=== PATIENT | male | born 1995 | race Two or more races ===

== ENCOUNTER 2019-04-10 23:41 | Emergency (ER) | payer OTHER ==
[~2019-04-10] VITALS: Ht 157.5 cm; Wt 68.0 kg
[2019-04-11] MEDS ORDERED: FAMOTIDINE IV 40 MG in IV DEXTROSE 5% 50 ML IV ONE ×2
[2019-04-11] MEDS ORDERED: ONDANSETRON 4 MG/2 ML VIAL IV ONE
[2019-04-11] MEDS ORDERED: IV D5/ 0.9% NACL 1,000 ML IV ONE
[2019-04-11] MEDS ORDERED: OLANZAPINE 5 MG TABLET PO ONE
--- NOTE | 2019-04-11 00:01 | NUR ---
Pt. BIB RA for stated emesis of blood x 3 days, pt. is homeless and disheveled in appearance, A/Ox4, speaks in clear and complete sentences, RR even and unlabored, VSS, reports feeling nauses witnessed emesis x 2 - no blood in emesis, denies SOB/CP/VANCE/F/C/D,
--- NOTE | 2019-04-11 00:08 | NUR ---
Rad. tech. at bedside for CXR
[2019-04-11] MEDS ORDERED: ONDANSETRON 4 MG/2 ML VIAL ONE (00:13)
[2019-04-11 00:24] LABS: BASOPHILS % (AUTO) 0.5 % (0.0-2.0); HEMATOCRIT 52.3 % (36.7-47.1); HEMOGLOBIN 18.5 g/dL (12.5-16.3); LYMPHOCYTES # (AUTO) 2.3 K/uL (20.0-40.0); LYMPHOCYTES % (AUTO) 31.2 % (20.5-51.5); MEAN CORPUSCULAR HGB CONC 35 g/dL (32.5-36.3); MEAN CORPUSCULAR VOLUME 87.7 fL (73.0-96.2); MONOCYTES # (AUTO) 0.5 K/uL (2.0-10.0); MONOCYTES % (AUTO) 7.4 % (0.0-11.0); NEUTROPHILS # (AUTO) 4.5 K/uL (1.8-8.9); NEUTROPHILS % (AUTO) 60.9 % (38.5-71.5); PLATELET COUNT (AUTO) 229 K/uL (152-348); RED BLOOD CELL COUNT(AUTO) 5.97 MIL/uL (4.06-5.63); WHITE BLOOD COUNT (AUTO) 7.4 K/uL (3.6-10.2)
--- NOTE | 2019-04-11 00:32 | NUR ---
IV pepcid in D5 50ml bag stopped at 0032 Addendum: 04/30/19 at 2036 by BKSHELIA Pepcid in 50cc D5 bag stopped at 131
[2019-04-11 00:34] LABS: CREATININE 0.8 mg/dL (0.6-1.3); POTASSIUM 2.9 mmol/L (3.5-5.1)
[2019-04-11 00:40] LABS: BILIRUBIN,DIRECT 0.6 mg/dL (0.0-0.2); TOTAL PROTEIN, SERUM 7.8 g/dL (6.4-8.2)
[2019-04-11] MEDS ORDERED: FAMOTIDINE. 20 MG/2 ML VIAL IV ONE (00:45)
[2019-04-11] MEDS ORDERED: OLANZAPINE 5 MG TABLET ONE (00:45)
--- NOTE | 2019-04-11 00:46 | NUR ---
IV pepcid 20mg in 5ml NS stopped at 0046
--- NOTE | 2019-04-11 01:00 | NUR ---
Pt. given basin, soap and washcloths to rinse feet, given non-slip socks,
--- NOTE | 2019-04-11 01:25 | NUR ---
IV stop time D5NS 0125
--- NOTE | 2019-04-11 01:30 | NUR ---
Pt. up to use restroom, walks w/ steady gait, NAD
[2019-04-11] MEDS ORDERED: IV 0.9% SODIUM CHLORID+ 20 KCL 1,000 ML IV ONE (01:35)
[2019-04-11] MEDS ORDERED: POTASSIUM CHLORIDE 20 MEQ TAB.PRT.SR PO ONE (01:45)
[2019-04-11] MEDS ORDERED: MAGNESIUM SULFATE/D5W 100 ML ONE ×2 (02:17→02:43)
[2019-04-11] MEDS ORDERED: POTASSIUM CHLORIDE 20 MEQ TAB.PRT.SR ONE (02:20)
[2019-04-11] MEDS: MAGNESIUM SULFATE/D5W 100 ML IV SCH ×2 (02:36→03:30)
[2019-04-11] MEDS ORDERED: POTASSIUM CHLORIDE 100 ML ONE (02:43)
[2019-04-11] MEDS ORDERED: POTASSIUM CHLORIDE 50 ML IV ONE ×2 (02:45)
--- NOTE | 2019-04-11 02:58 | NUR ---
Pt. resting in bed, IV fluids infusing, no s/s infiltration/phlebitis,
[2019-04-11 03:04] LABS: *OCCULT BLOOD STOOL NEGATIVE (NEGATIVE)
--- NOTE | 2019-04-11 03:45 | NUR ---
IV stop time KCL 4578
--- NOTE | 2019-04-11 05:14 | NUR ---
Pt. resting in bed w/ eyes closed, IV fluids infusing, no s/s infiltration/phlebitis,
--- NOTE | 2019-04-11 05:50 | NUR ---
IV stop time KCL 0550
--- NOTE | 2019-04-11 05:50 | NUR ---
R hand IV pulled out by pt. accidentally,
--- NOTE | 2019-04-11 06:20 | NUR ---
Patient given written and verbal discharge instructions. Patient verbalizes understanding of instructions. Patient is ambulatory with steady gait. Refuses offer of [facility] placement. Patient given list of available shelters in surrounding area. Pt. d/c per MD order w/ prescription, d/c papers signed, all belongings w/ pt., ID band/IV removed, ambulated off unit w/ steady gait, NAD
== END 2019-04-11 06:23 | disposition home or self-care (01) ==
LOC: ER 23:43
DX: F10.129 Alcohol abuse with intoxication, unspecified (principal); F20.9 Schizophrenia, unspecified; F32.9 Major depressive disorder, single episode, unspecified; F17.200 Nicotine dependence, unspecified, uncomplicated; Z76.5 Malingerer [conscious simulation]; Y90.9 Presence of alcohol in blood, level not specified
CPT/HCPCS: 36415; 71045; 80048; 80076; 82270; 83690; 84484; 85025; 85730; 86850; 86900; 86901; 93005; 96365; 96366; 96367; 96368; 96375; 99284; J2405; J3475 ×2; J3480; J3490; J7060; 70030-TC; A4663; J7030

== ENCOUNTER 2020-08-15 21:16 | Emergency (ER) | payer OTHER ==
[~2020-08-15] VITALS: Ht 154.9 cm; Wt 54.1 kg
[2020-08-15] MEDS ORDERED: HYDROMORPHONE 1 MG/1 ML DISP.SYRIN IM ONE (21:45)
[2020-08-15] MEDS ORDERED: ONDANSETRON 4 MG/2 ML VIAL IM ONE (21:45)
[2020-08-15] MEDS ORDERED: ONDANSETRON 4 MG/2 ML VIAL ONE (21:46)
[2020-08-15] MEDS ORDERED: HYDROMORPHONE 2 MG/1 ML DISP.SYRIN ONE (21:46)
--- NOTE | 2020-08-15 21:54 | NUR ---
Patient discharged to home in stable condition. Written and verbal after care instructions given. Patient verbalizes understanding of instructions. Stressed follow up or return to ER for worsening s/s. Patient ambulated with stable gait.
[2020-08-15 21:55] VITALS: BP 121/62
== END 2020-08-15 21:56 | disposition home or self-care (01) ==
LOC: ER 21:20
DX: G89.29 Other chronic pain (principal); M25.532 Pain in left wrist; S60.86 Insect bite (nonvenomous) of wrist; W57.XXXS Bitten or stung by nonvenomous insect and other nonvenomous arthropods, sequela; Z59.0 Homelessness; F31.9 Bipolar disorder, unspecified; F20.9 Schizophrenia, unspecified
CPT/HCPCS: 96372 ×2; 99284; J1170; J2405; A4663

== ENCOUNTER 2020-09-28 14:34 | Emergency (ER) | payer MEDICAID, OTHER ==
[~2020-09-28] VITALS: Ht 160 cm; Wt 52.2 kg
--- NOTE | 2020-09-28 14:34 | NUR ---
PT BIB [facility] 85 FROM [facility] POSSIBLE OD, PT WAS GIVEN NARCAN IM BY PARAMEDICS. IN ER, PT AWAKE, RA SAT 97%, NORMAL BREATHING. PT DOES NOT ANSWER ANY QUESTION, ONLY MOANS AND LEYLA
[2020-09-28 14:59] LABS: BASOPHILS # (AUTO) 0.1 K/uL (0.0-8.0); BASOPHILS % (AUTO) 0.6 % (0.0-2.0); EOSINOPHILS % (AUTO) 0.1 % (0.0-7.0); HEMATOCRIT 38.4 % (36.7-47.1); HEMOGLOBIN 13.7 g/dL (12.5-16.3); LYMPHOCYTES # (AUTO) 2.1 K/uL (20.0-40.0); LYMPHOCYTES % (AUTO) 17.5 % (20.5-51.5); MEAN CORPUSCULAR HEMOGLOBIN 29.9 uug (23.8-33.4); MEAN CORPUSCULAR HGB CONC 36 g/dL (32.5-36.3); MEAN CORPUSCULAR VOLUME 84.1 fL (73.0-96.2); MONOCYTES # (AUTO) 0.6 K/uL (2.0-10.0); NEUTROPHILS # (AUTO) 9.1 K/uL (1.8-8.9); NEUTROPHILS % (AUTO) 76.8 % (38.5-71.5); PLATELET COUNT (AUTO) 443 K/uL (152-348); RED BLOOD CELL COUNT(AUTO) 4.57 MIL/uL (4.06-5.63); WHITE BLOOD COUNT (AUTO) 11.9 K/uL (3.6-10.2)
[2020-09-28 15:08] LABS: CARBON DIOXIDE 27 mmol/L (21-32); CHLORIDE 102 mmol/L (98-107); CREATININE 0.6 mg/dL (0.6-1.3); GLUCOSE 104 mg/dL (74-106); POTASSIUM 3.1 mmol/L (3.5-5.1); UREA NITROGEN, BLOOD 14 mg/dL (7-18)
--- NOTE | 2020-09-28 15:10 | NUR ---
[employer] OFFICERS AT BEDSIDE.
[2020-09-28 15:14] LABS: ALANINE AMINOTRANSFERASE 65 U/L (16-63); ALKALINE PHOSPHATASE 135 U/L (50-136); BILIRUBIN,TOTAL 0.6 mg/dL (0.2-1.0); TOTAL PROTEIN, SERUM 6.6 g/dL (6.4-8.2)
--- NOTE | 2020-09-28 15:15 | NUR ---
JG PLACED PT ON HOLD FOR 5150 HOLD, ARA
--- NOTE | 2020-09-28 15:23 | NUR ---
DELAY ON EKG, PT UNABLE TO HOLD STILL
[2020-09-28 15:24] LABS: ASPARTATE AMINOTRANSFERASE 43 U/L (15-37)
[2020-09-28 15:31] LABS: ACETAMINOPHEN < 2.0 ug/mL (10-30)
[2020-09-28 16:30] LABS: THYROID STIMULATING HORMONE 0.425 mIU/mL (0.358-3.740)
--- NOTE | 2020-09-28 16:33 | NUR ---
pt in bed, moves all extremeties and once in a while says something hard to understand.
--- NOTE | 2020-09-28 18:05 | NUR ---
PT IN BED MOVING FREQUENTLY. VSS.
--- NOTE | 2020-09-28 20:13 | NUR ---
Sitter at bedside , direct observation ongoing.
--- NOTE | 2020-09-28 22:00 | NUR ---
Patient remains in bed, no acute distress noted. VSS
--- NOTE | 2020-09-28 23:12 | NUR ---
Patient in bed, sitter at bedside. Direct observation ongoing. no acute distress noted. VSS
--- NOTE | 2020-09-29 00:12 | NUR ---
Patient remains in bed,no acute distress noted. VSS
--- NOTE | 2020-09-29 04:39 | NUR ---
Patient continues to endorses suicidality. No acute distress noted. Sitter at bedside. VSS
--- NOTE | 2020-09-29 07:06 | NUR ---
Report to Rudolph HERNANDEZ
--- NOTE | 2020-09-29 07:07 | NUR ---
recieved pt in bed, no sign of distress. sitter at bedside.
--- NOTE | 2020-09-29 07:30 | NUR ---
THERE IS NO SITTER AVAILABLE FOR THE PT, NURSING OFFICE IS AWARE.
--- NOTE | 2020-09-29 09:00 | NUR ---
LEFT A CONNIE Myles, COURTESY BUS DRIVER. LEFT A MESSAGE
--- NOTE | 2020-09-29 10:00 | NUR ---
LEFT A MESSAGE Mleo OWENS. SHE WILL FOLLOW UP WITH CASE.
--- NOTE | 2020-09-29 10:09 | NUR ---
JAMIR GOMEZ CALLED, WILL COME TO EVALUATE THE PT.
--- NOTE | 2020-09-29 11:00 | NUR ---
radha sheriff at bedside.
[2020-09-29 12:48] LABS: *AMPHETAMINE, URINE POSITIVE (NEGATIVE); *CANNABINOID, URINE POSITIVE (NEGATIVE); *COCCAINE, URINE NEGATIVE (NEGATIVE); *OPIATE, URINE NEGATIVE (NEGATIVE); *PHENCYCLIDINE SCREEN,URINE NEGATIVE (NEGATIVE)
--- NOTE | 2020-09-29 13:25 | NUR ---
uds faxed to requested numbers per Art.
--- NOTE | 2020-09-29 13:39 | NUR ---
RECEIVED REPORT FROM FARZANA RN, PT SLEEPING WITH EYES CLOSEED. AWAITING FOR [facility] TO FIND PLACEMENT.
--- NOTE | 2020-09-29 14:00 | NUR ---
ALLYSON PSYCH DIRECTOR PRESENT AND HELPING WITH TRANSFER INFORMATION .
--- NOTE | 2020-09-29 14:12 | NUR ---
LUNCH GIVEN TO PT.
--- NOTE | 2020-09-29 14:30 | NUR ---
Clinical Social Work Note Patient was placed on a voluntary status by Torres Brown LCSW. This social economist called Camila Ochoa, Director of [facility] and she said she will do her best to expedite and review this possible admission to their unit. All information refaxed to the call center at [phone] at 1415. Will await response. Also, called Isauro, scrap preparation supervisor at [facility] ([phone]) and he is having scrap preparation supervisor review chart. Advised Dr Galvez that we are awaiting acceptance and will transfer as soon as a bed becomes available. Sarthak assigned RN was also notified of plan.
--- NOTE | 2020-09-29 15:30 | NUR ---
CALLED [facility],AT [phone], SPOKE TO KAYE HERNANDEZ WHOM STATED SHE WAS NOT READY FOR REPORT. STATED SHE WOULD CALL ME BACK IN 15MIN AFTER REVIEWING THE CHART.
--- NOTE | 2020-09-29 16:00 | NUR ---
SPOKE TO CARMELO HERNANDEZ AT [facility], GAVE HER REPORT. BELONGINGS LIST DONE TRANSGFER CONSENT SIGNED, AWAITING FOR S TRANSPORT TO ARRIVE.
[2020-09-29] MEDS ORDERED: POTASSIUM CHLORIDE 20 MEQ TAB.PRT.SR PO ONE (16:15)
[2020-09-29] MEDS ORDERED: POTASSIUM CHLORIDE 20 MEQ TAB.PRT.SR ONE (16:17)
--- NOTE | 2020-09-29 17:45 | NUR ---
[facility] TRANSPORT GIVEN REPORT/COPY OF CHART. PT TOOK ALL BELONGINGS, SIGNED TRANSFER ACKNOWLEDGMENT. NO DISTRESS NOTED.
== END 2020-09-29 17:56 ==
LOC: ER 14:34
DX: T40.412A Poisoning by fentanyl or fentanyl analogs, intentional self-harm, initial encounter (principal); T43.622A Poisoning by amphetamines, intentional self-harm, initial encounter; T40.1X2A Poisoning by heroin, intentional self-harm, initial encounter; G92 Toxic encephalopathy; Y92.89 Other specified places as the place of occurrence of the external cause; F19.10 Other psychoactive substance abuse, uncomplicated; F90.9 Attention-deficit hyperactivity disorder, unspecified type; F31.9 Bipolar disorder, unspecified; F17.210 Nicotine dependence, cigarettes, uncomplicated; Z91.5 Personal history of self-harm; R53.83 Other fatigue; Z20.828 Contact with and (suspected) exposure to other viral communicable diseases; E87.6 Hypokalemia; R94.31 Abnormal electrocardiogram [ECG] [EKG]
CPT/HCPCS: 36415; 71045; 84443; 85025; 93005; A4663; G0480